=== PATIENT | female | born 1975 | race Caucasian/White ===

== ENCOUNTER 2016-06-28 14:15 | Outpatient (CLI) | payer OTHER | END 2016-06-28 14:16 | disposition home or self-care (01) | DX: K52.9 Noninfective gastroenteritis and colitis, unspecified (principal) ==

== ENCOUNTER 2016-06-29 09:10 | Outpatient (CLI) | payer OTHER | END 2016-06-29 23:59 | DX: K52.9 Noninfective gastroenteritis and colitis, unspecified (principal) ==

== ENCOUNTER 2018-07-05 14:49 | Outpatient (CLI) | payer OTHER ==
--- NOTE | 2018-07-06 08:59 | Mammography Report ---
Reason: SCREENING MAMMO Procedure Date: 07/05/2018 Accession Number: [id number] / [id number] Procedure: [facility] - Screening Mammo w/Juan CPT Code: FULL RESULT: EXAM: Screening Mammo w/Juan DATE: 07/05/2018 3:32 PM CLINICAL HISTORY: Screening encounter. No reported risk factors. TECHNIQUE: (B) - Bilateral CC and MLO views were obtained. COMPARISON: None, baseline mammogram. PARENCHYMAL PATTERN: (D) - The breast(s) demonstrate(s) heterogeneously dense fibroglandular parenchyma. FINDINGS: The left axillary tail of breast tissue is asymmetrically prominent as compared to the right without visualization of associated mass, architectural distortion or calcifications. Seen on the left MLO view only is a prominent cluster of presumed lymph nodes, not visualized on the right which is possibly due to differences in technique. Recommend clarification of both findings with focused left breast ultrasound. There are no suspicious masses, calcifications, or areas of distortion on the right. IMPRESSION: Incomplete examination. BI-RADS category 0. RECOMMENDATION: (ADDUS) - Targeted ultrasound recommended. Focused left breast ultrasound, axillary tail and axillary region. BI-RADS CATEGORY: (0) - Incomplete Examination - need additional evaluation. STANDARD QUALIFYING STATEMENTS: 1. This examination was not reviewed with the aid of Computer-Aided Detection (CAD). 2. A negative or benign imaging report should not preclude biopsy if clinically suspicious findings are present. 3. Dense breasts may obscure an underlying neoplasm. 4. This examination was reviewed with the aid of 3D breast imaging (tomosynthesis).
== END 2018-07-05 14:50 | disposition home or self-care (01) ==
LOC: DI 14:49
PROVIDERS: ATTEND Nurse Practitioner Obstetrics & Gynecology
DX: Z12.31 Encounter for screening mammogram for malignant neoplasm of breast (principal)
CPT/HCPCS: 77063; 77067

== ENCOUNTER 2018-07-17 14:34 | Outpatient (CLI) | payer OTHER ==
--- NOTE | 2018-07-17 16:25 | Ultrasound Report ---
Reason: ABNORMAL MAMMOGRAM Procedure Date: 07/17/2018 Accession Number: [id number] / [id number] Procedure: US - Breast Unilateral Limited CPT Code: FULL RESULT: EXAM: Breast Unilateral Limited DATE: 07/17/2018 4:16 PM CLINICAL HISTORY: ABNORMAL MAMMOGRAM COMPARISON: 07/05/2018. TECHNIQUE: Targeted ultrasound was performed of the left breast in the area of clinical concern along the axillary tail. Color Doppler was employed as appropriate. FINDINGS: Morphologically normal breast tissue is identified throughout the axillary tail with no suspicious mass or architectural distortion. Normal-appearing lymph nodes with normal morphologic features and size are also seen within the axilla. IMPRESSION: Negative examination RECOMMENDATION: Recommend routine annual Screening mammography unless otherwise clinically indicated. BIRADS CATEGORY 1: Negative RADIA
== END 2018-07-17 14:35 | disposition home or self-care (01) ==
LOC: DI 14:34
PROVIDERS: ATTEND Nurse Practitioner Obstetrics & Gynecology
DX: R92.8 Other abnormal and inconclusive findings on diagnostic imaging of breast (principal)
CPT/HCPCS: 76642

== ENCOUNTER 2023-07-27 08:46 | Outpatient (CLI) | payer BC ==
--- NOTE | 2023-07-28 11:48 | Mammography Report ---
BILATERAL DIGITAL SCREENING MAMMOGRAM 3D/2D: 07/27/2023 CLINICAL: Routine screening. Comparison is made to exam dated: 07/05/2018 mammogram - [facility]. There are scattered areas of fibroglandular density in both breasts (category b / 25%-50% glandular t issue). No significant masses, calcifications, or other findings are seen in either breast. There has been no significant interval change. IMPRESSION: NEGATIVE There is no mammographic evidence of malignancy. A 1 year screening mammogram is recommended. Based on the Tyrer Cuzick model (a risk assessment model) the patient's lifetime risk is 9.6% and her 10 year risk is 2.0%. According to the ACR, ACS, and NCCN guidelines, an annual breast MRI exam angela g with mammogram is recommended if the patient's lifetime risk is 20% or greater. This exam was interpreted at Station ID: [id number]. NOTE: For mammograms, a report in lay terms will be sent to the patient. Approximately 15% of breast malignancies will not be visualized mammographically. In the management of a palpable breast mass, a negative mammogram must not discourage biopsy of a clinically suspicious lesion. Electronically Signed By: Lili renteria/marie:07/27/2023 10:05:42 letter sent: No_Letter ACR BI-RADS Category 1: Negative 3341F PARENCHYMAL PATTERN: (A) - The breast(s) demonstrate(s) scattered fibroglandular densities. BI-RADS CATEGORY: (1) - 1 RECOMMENDATION: (ANNUAL) - Recommend routine annual screening mammography. [id number] 1 year screening LATERALITY: (B)
== END 2023-07-27 08:47 | disposition home or self-care (01) ==
LOC: DI.N 08:46
DX: Z12.31 Encounter for screening mammogram for malignant neoplasm of breast (principal); R92.323 Mammographic fibroglandular density, bilateral breasts